=== PATIENT | female | born 1960 | race Caucasian/White ===

== ENCOUNTER → 2017-01-29 | Outpatient (CLI) | payer OTHER, BC ==
[~2017-01-29] MED LIST: ADALAT CC 60 MG60 MG PO; AFEDITAB CR30 MG PO; AMBIEN10 M1 PO; AMBIEN10 MG PO; AMITRIPTYLINE H10 MG PO; ASPIRIN325 MG PO; BENADRYL25 MG PO; CARDIZEM30 MG PO; CELLCEPT500 MG PO; COLACE10 MG/ML PO; CUPRIMINE PO; CURCUMIN1 GM MC; CYANOCOBALAM1000 MCG PO; CYANOCOBALAMI100 MCG PO; Cardizem PO; D3 DOTS2000 UNIT PO; DELTASONE DOSEPA5 MG PO; DIFLUCAN100 MG PO; EVOXAC30 MG PO; FOLIC ACID20 MG PO; LEVOTHROID,SYN0.1 MG PO; LEVOTHROID100 MCG PO; LEVOTHYROXINE88 MCG PO; METHOTREXATE2.5 MG PO; MIRALAX, GLYCOL1 PKT PO; MIRALAX17 GM PO; MULTIVITAMIN1 EAC1 PO; MULTIVITAMIN1 EAC2 PO; NEURONTIN100 MG PO; OXYCODONE-APAP1 EACH PO; PREDNISONE5 MG PO; PRILOSEC20 MG PO; PRILOSEC40 MG PO; PRISTIQ50 MG PO; PROCARDIA XL30 MG PO; PROCARDIA20 MG PO; PROZAC20 MG PO; REFRESH15 ML BOTH EYES; REVATIO20 MG PO; SILDENAFIL20 MG PO; VIAGRA25 MG PO; VICODIN,LORT1 TABLET PO; VITAMIN D1000 UNIT PO; VITAMIN D35000 UNIT PO
== END | disposition home or self-care (01) ==
DX: R13.10 Dysphagia, unspecified (principal); M34.9 Systemic sclerosis, unspecified
CPT/HCPCS: 92611 GN; G8996 GN; G8997 GN; G8998 GN